=== PATIENT | female | born 1985 | race African-American/Black ===

== ENCOUNTER 2024-06-22 08:56 | Emergency (ER) | payer OTHER ==
--- OUTSIDE RECORDS SUMMARY | 2024-06-22 09:00 | XMS REPORT | Continuity of Care Document ---
Author Name Unknown Address [address] [facility] [place] [address] [facility] [place] Address [address] [facility] [place] [address] Care Team Providers Care Special Education Para Professional Name Role Phone PCP, PATIENT DOES NOT HAVE A Primary Care Physic ailyn Unavailable JOCE KEITA Attending Clinician Unavailable ANDREW HOOVER Attending Clinician Unavailable JUVE THORNTON Attending Clinician Unavailab BRAXTON Dee I Attending Clinician Unavailab buddy [email or web address]_S Attending Clinician UnavailSCOTTIE Martins Attending Clinician UnavailScottie Elena MD Attending Clinician See Janeth HOLLOWAY Attending Clinician + Trinidad Teresa MD Attending Clinician TRINIDAD TERESA Attending Clinician UnavailJANETH Chisholm Attending Clinician Unavail able KRYS MARTINEZ Attending Clinician Unavailable Krys Woody Attending Clinician [phone] Doctor Unassigned, [place] Attending Clinician U kaila Duong MD, Judi Oliveros Attending Clinician LEONARDO DEAN Attending Clinician Unavailable Huseyin Deleon Attending Clinician FABIAN, DR CARTER Attending Clinician Unavailable [email or web address]_S Admitting Clinician Unavaila SCOTTIE Varma Admitting Clinician UnavailKRYS Leigh Admitting Clinician Unavailable DR EMMA PERALTA Admitting Clinician Unavailable Payers Payer Name Policy Type Policy Number Effective Date Expirati on Date Source [facility] [id number] 2017 00:00:00 [facility] GOLD COPAY FOCUS 9 [id number] 2024 00:00:00 [facility] DEB[facility]AH MP 1 [id number] 2024 00:00:00 Problems Condition Name Condition Details Condition Category Status Onset Date Resolution Date Last Treatment Date Treating Clinician Comments Source Well woman exam Well woman exam Disease Active 2021-04 00:00: 00 [facility] Obesity (BMI 30-39.9) Obesity (BMI 30-39.9) Disease Active 2021-04 00:00: 00 [facility] Breast abscess Breast abscess Disease Active 2021-04 00:00: 00 [facility] Dehydratio n Dehydratio n Disease Active 08-24 00:00: 00 [facility] Cellulitis Cellulitis Disease Active 2014-04 00:00: 00 [facility] Morbid obesity Morbid obesity Disease Active 01-14 00:00: 00 [facility] Asthma Asthma Disease Active 01-14 00:00: 00 [facility] Allergies, Adverse Reactions, Alerts Allergy Name Allergy Type Status Severity Reaction(s) Onset Date Inactive Date Treating Clinician Comments Source PENICILL INS Drug Class Active Unknown-Cmnt 01-13 00:00: 00 [facility] Penicill ins Propensi ty to adverse reaction s Active Unknown - See comments 01-13 00:00: 00 anaphylac tic [facility] Penicill ins Propensi ty to adverse reaction s Active Unknown - See comments 01-13 00:00: 00 anaphylac tic [facility] Social History Social Habit Start Date Stop Date Quantity Comments Source ASSERTION 2018-07-27 00:00:00 [facility] History of tobacco use Cigarette Smoker [facility] Exposure to SARS-CoV-2 (event) 2022-08-16 00:00:00 2022-08-26 15:28:00 Not sure [facility] Alcohol intake 2022-08-26 00:00:00 2022-08-26 00:00:00 Current non-drinker of alcohol (finding) [facility] Cigarettes smoked current (pack per day) - Reported 2022-02-04 00:00:00 2022-02-04 00:00:00 [facility] Cigarette pack-years 2022-02-04 00:00:00 2022-02-04 00:00:00 [facility] Tobacco use and exposure 2022-02-04 00:00:00 2022-02-04 00:00:00 Smokeless tobacco non-user [facility] Sex Assigned At 1985 00:00:00 1985 00:00:00 [facility] Smoking Status Start Date Stop Date Source Smokes tobacco daily 2022-02-04 00:00:00 [facility] Medications Ordered Medication Name Filled Medication Name Start Date Stop Date Current Medication? Ordering Clinician Indication Dosage Frequency Signature (SIG) Comments Components Source clindamycin in 5 % dextrose (CLEOCIN) 900 mg/50 mL IV piggyback RTU 900 mg 08-26 22:45: 00 08-26 22:24 :00 No 900mg 900 mg, IV Piggyback, ONCE, 1 dose, On Wed08/26/22 at 1745, Administer over 30 Minutes, 50 mL
Reas on for Anti-Infec tive: Empiric Therapy for Suspected Infection< br>Empiric Therapy Site: Skin / Soft tissue
Duration of therapy: 72 hours
R estricted use approved by: After Hours (for ADC, CLC, LCC ONLY) [facility] sulfamethox azole-trime thoprim (BACTRIM DS) 800-160 mg per tablet 2 tablet 08-26 22:00: 00 08-26 22:02 :00 No 2{tbl} 2 tablet, Oral, ONCE, 1 dose, On Wed08/26/22 at 1700, CARINA
Re ason for Anti-Infec tive: Empiric Therapy for Suspected Infection< br>Empiric Therapy Site: Skin / Soft tissue
Duration of therapy: 5 days [facility] morpHINE (4 mg/mL) injection 4 mg 08-26 22:00: 00 08-26 22:02 :00 No 4mg 4 mg, Slow IV Push, ONCE, 1 dose, On Wed08/26/22 at 1700, STAT [facility] iopamidol (ISOVUE 370-500 mL) injection 100 mL 08-26 21:45: 00 08-26 21:45 :00 No [id number] 100mL 100 mL, Intravenou s, ONCE, 1 dose, On Wed08/26/22 at 1645, Routine [facility] butalbital- acetaminoph en-caff (ESGIC) 50-325-40 mg tablet 1 tablet 08-26 20:45: 00 08-26 20:25 :00 No 1{tbl} 1 tablet, Oral, ONCE NOW, 1 dose, On Wed08/26/22 at 1545, Routine [facility] ketorolac (TORADOL) injection 30 mg 08-26 20:45: 00 08-26 20:25 :00 No 30mg 30 mg, Slow IV Push, ONCE, 1 dose, On Wed08/26/22 at 1545, Routine [facility] ondansetron (ZOFRAN (PF)) injection 4 mg 08-26 20:00: 00 08-26 20:25 :00 No 4mg 4 mg, Slow IV Push, ONCE, 1 dose, On Wed08/26/22 at 1500, CARINA [facility] NaCl 0.9% (NS) bolus infusion 1,000 mL 08-26 20:00: 00 08-26 21:44 :00 No 1000mL at 999 mL/hr, 1,000 mL, IV Infusion, ONCE, 1 dose, On Wed08/26/22 at 1500, STAT [facility] acetaminoph en-codeine (TYLENOL-CO DEINE #3) 300-30 mg tablet 08-26 00:00: 00 Yes [id number] 1{tbl} Take 1 tablet by mouth every 6 (six) hours as needed for Pain (scale 4-6) for up to 10 doses. Indication s: acute pain [facility] clindamycin 300 mg capsule 08-26 00:00: 00 09-06 04:59 :00 No [id number] 300mg Take 1 capsule by mouth in the morning and 1 capsule at noon and 1 capsule in the evening. Do all this for 10 days. [facility] sulfamethox azole-trime thoprim 800-160 mg per tablet 08-26 00:00: 00 09-06 04:59 :00 No [id number] 2{tbl} Take 2 tablets by mouth every 12 (twelve) hours for 10 days. [facility] ibuprofen 800 mg tablet 08-26 00:00: 00 09-01 04:59 :00 No [id number] 800mg Take 1 tablet by mouth every 8 (eight) hours as needed for Pain (scale 4-6) for up to 5 days. [facility] acetaminoph en 325 mg Cap 2021-04 16:39: 16 03-30 00:00 :00 No Take by mouth. [facility] clindamycin 1 % gel 2021-04 00:00: 00 Yes [id number] Apply to area(s) 2 (two) times daily. Use twice a day under right breast and around nipple [facility] sulfamethox azole-trime thoprim (BACTRIM DS) 800-160 mg per tablet 2021-04 00:00: 00 04-07 05:59 :00 No [id number] 1{tbl} Take 1 tablet by mouth in the morning and 1 tablet in the evening. Do all this for 7 days. [facility] sulfamethox azole-trime thoprim (BACTRIM) 400-80 mg per tablet 2021-04 00:00: 00 04-07 05:59 :00 No [id number] 1{tbl} Take 1 tablet by mouth in the morning and 1 tablet in the evening. Do all this for 7 days. To start first week of every other month, alternatin g with Doxycyline (eg. Take a week course of Bactrim now [03/30/22] then take Doxycyline on first week of April, then Bactrim the first week of May, then Doxycyline the first week of June, and then Bactrim the first week of July, and so on and so forth. [facility] doxycycline 100 mg EC tablet 2021-04 00:00: 00 04-07 05:59 :00 No [id number] 100mg Take 1 tablet by mouth in the morning and 1 tablet in the evening. Do all this for 7 days. To start first week of every other month, alternatin g with Doxycyline (eg. Take a week course of Bactrim now [03/30/22] then take Doxycyline on first week of April, then Bactrim the first week of May, then Doxycyline the first week of June, and then Bactrim the first week of July, and so on and so forth. [facility] acetaminoph en 325 mg Cap 2021-04 019 09:52: 48 Yes Take by mouth. [facility] ipratropium -albuterol (DUONEB) 0.5 mg-3 mg(2.5 mg base)/3 mL nebulizer solution 3 mL 06-14 22:30: 00 06-14 21:38 :00 No 3mL 3 mL, Inhalation , ONCE, 1 dose, 06/14/19 at 1630, Routine [facility] albuterol 2.5 mg /3 mL (0.083 %) nebulizer solution 06-14 00:00: 00 03-30 00:00 :00 No [id number] 2.5mg Inhale 3 mL every 4 (four) hours as needed for Wheezing or Shortness of Breath. [facility] ibuprofen 600 mg tablet 06-14 00:00: 00 03-30 00:00 :00 No [id number] 600mg Take 1 tablet by mouth every 6 (six) hours as needed for Pain (scale 4-6). [facility] ondansetron (ZOFRAN ODT) 4 mg disintegrat ing tablet 06-14 00:00: 00 03-30 00:00 :00 No [id number] 4mg Take 1 tablet by mouth every 8 (eight) hours as needed for Nausea and Vomiting (N/V). [facility] benzonatate 200 mg capsule 06-14 00:00: 00 03-30 00:00 :00 No [id number] 200mg Take 1 capsule by mouth 3 (three) times daily as needed for Cough for up to 20 doses. [facility] Quetiapine 150 mg tablet 09-09 00:00: 03-30 00:00 :00 No TK 1 T PO QHS [facility] acetaminoph en (TYLENOL) 325 mg Cap 09-05 18:50: 54 Yes Take by mouth. [facility] acetaminoph en (TYLENOL) 325 mg Cap 09-05 13:50: 54 Yes Take by mouth. [facility] albuterol 90 mcg/actuati on inhaler 08-10 00:00: 00 03-30 00:00 :00 No [id number] 2{puff} Inhale 2 Puffs every 6 (six) hours as needed for Wheezing or Shortness of Breath. [facility] Vital Signs Vital Name Observation Time Observation Value Comments S piotr Systolic blood pressure 2022-08-26 21:00:00 109 mm[Hg] [facility] Diastolic blood pressure 2022-08-26 21:00:00 74 mm[Hg] [facility] Heart rate 2022-08-26 21:00:00 59 /min [facility] Respiratory rate 2022-08-26 21:00:00 18 /min [facility] Oxygen saturation in Arterial blood by Pulse oximetry 2022-08-26 21:00:00 100 /min [facility] Body temperature 2022-08-26 19:26:00 37.22 Irta [facility] Body weight 2022-08-26 19:26:00 122.471 kg [facility] BMI 2022-08-26 19:26:00 47.83 kg/m2 [facility] Systolic blood pressure 2022-04-30 23:00:00 115 mm[Hg] [facility] Diastolic blood pressure 2022-04-30 23:00:00 70 mm[Hg] [facility] Heart rate 2022-04-30 23:00:00 71 /min [facility] Respiratory rate 2022-04-30 23:00:00 16 /min [facility] Oxygen saturation in Arterial blood by Pulse oximetry 2022-04-30 23:00:00 98 /min [facility] Body temperature 2022-04-30 18:15:00 37.5 Rita [facility] Body height 2022-04-30 18:13:00 160 cm [facility] Body weight 2022-04-30 18:13:00 163.295 kg [facility] BMI 2022-04-30 18:13:00 63.77 kg/m2 [facility] Systolic blood pressure 2022-03-30 22:37:00 108 mm[Hg] [facility] Diastolic blood pressure 2022-03-30 22:37:00 72 mm[Hg] [facility] Heart rate 2022-03-30 22:37:00 82 /min [facility] 2022-03-30 22:37:00 18 /min [facility] Body height 2022-03-30 22:37:00 160 cm [facility] Body weight 2022-03-30 22:37:[address] [facility] BMI 2022-03-30 22:37:00 51.23 kg/m2 [facility] Oxygen saturation in Arterial blood by Pulse oximetry 2022-03-30 22:37:00 100 /min [facility] Systolic blood pressure 2022-02-04 14:45:00 112 mm[Hg] [facility] Diastolic blood pressure 2022-02-04 14:45:00 67 mm[Hg] [facility] Heart rate 2022-02-04 14:45:00 64 /min [facility] Body temperature 2022-02-04 14:45:00 36.67 Rita [facility] Respiratory rate 2022-02-04 14:45:00 20 /min [facility] Body height 2022-02-04 14:45:00 160 cm [facility] Body weight 2022-02-04 14:45:00 132.252 kg [facility] BMI 2022-02-04 14:45:00 51.65 kg/m2 [facility] Respiratory rate 2019-06-14 21:50:00 20 /min [facility] Oxygen saturation in Arterial blood by Pulse oximetry 2019-06-14 21:50:00 97 /min [facility] Systolic blood pressure 2019-06-14 20:07:00 119 mm[Hg] [facility] Diastolic blood pressure 2019-06-14 20:07:00 71 mm[Hg] [facility] Heart rate 2019-06-14 20:07:00 68 /min [facility] Body temperature 2019-06-14 20:07:00 36.83 Rita [facility] Body weight 2019-06-14 20:07:00 145.151 kg [facility] BMI 2019-06-14 20:07:00 56.69 kg/m2 [facility] Procedures Procedure Date / Time Performed Performing Clinician Source CT SOFT TISSUE NECK W CONTRAST 2022-08-26 20:55:51 Scottie Garcia [facility] CT HEAD WO CONTRAST 2022-08-26 20:54:17 Katarina Garcia [facility] TEST, SERUM 2022-08-26 20:24:00 Xena Garcia [facility] COMP. METABOLIC PANEL ([id number]) 2022-08-26 20:24:00 Scottie Garcia [facility] CBC WITH DIFF 2022-08-26 20:24:00 [facility] S[facility]EN FOR GROUP A 2022-08-26 20:24:00 Scottie Garcia [facility] RAPID INFLUENZA A/B 2022-08-26 20:24:00 Katarina Garcia [facility] COVID-19 (ID NOW RAPID TESTING) 2022-08-26 20:24:00 Scottie Garcia [facility] CONSENT/REFUSAL FOR DIAGNOSIS AND TREATMENT 2022-08-26 19:19:11 Doctor Unassigned, [place] [facility] XR FOOT 3+ VW RIGHT 2022-04-30 19:05:53 Krys Martinez [facility] NOTICE OF PRIVACY PRACTICES 2022-04-30 17:40:23 Doctor Unassigned, [place] [facility] CONSENT/REFUSAL FOR DIAGNOSIS AND TREATMENT 2022-04-30 17:39:56 Doctor Unassigned, [place] [facility] DISCLOSURE AND CONSENT, MEDICAL AND SURGICAL PROCEDURES 2022-03-31 06:01:00 Doctor Unassigned, [place] [facility] BI BIOPSY LYMPHNODE AXILLARY RIGHT 2022-02-24 20:45:00 Janeth Cui [facility] BI BIOPSY LYMPHNODE AXILLARY LEFT 2022-02-24 19:59:00 Janeth Cui [facility] BI US GUIDED CORE BREAST BIOPSY RIGHT 2022-02-24 19:45:00 Janeth Cui [facility] BI ULTRASOUND BREAST COMPLETE BILATERAL 2022-02-16 20:20:28 Janeth Cui [facility] BI DIAGNOSTIC TOMOSYNTHESIS BILATERAL 2022-02-16 19:31:39 Janeth Cui [facility] "RWSP CULLEN ONLY" FLU VACC(), 6+ MONTHS, IM, QUAD (FLUZONE/FLULAVAL/FLUARI X) 2022-02-04 18:56:51 Janeth Cui [facility] PROLACTIN 2022-02-04 15:42:00 Janeth Cui [facility] THYROID STIMULATING HORMONE 2022-02-04 15:42:00 Janeth Cui [facility] PAP SMEAR-LIQUID BASED-CP 2022-02-04 15:42:00 Janeth Cui [facility] ASSIGNMENT OF BENEFITS 2022-02-04 14:08:52 Docto r Unassigned, [place] [facility] NOTICE OF PRIVACY PRACTICES 2019-06-14 20:01:04 Doctor Unassigned, [place] [facility] CONSENT/REFUSAL FOR DIAGNOSIS AND TREATMENT 2019-06-14 19:58:12 Doctor Unassigned, [place] [facility] Encounters Start Date/Time End Date/Time Encounter Type Admission Type Attending [facility] Care Facility Care Department Encounter ID Source 2021-02-13 11:14:44 Emergency [facility] [id number] [facility] 2024-06-22 00:00:00 2024-06-22 00:00:00 Outpatient JOCE KEITA [id number] [facility] 2024 14:00:00 2024 14:00:00 Outpatient ANDREW HOOVER [id number] [facility] 2024-05-15 14:00:00 2024-05-15 14:00:00 Outpatient JUVE THORNTON [id number] [facility] 2024-05-12 11:30:00 2024-05-12 11:30:00 Outpatient BRAXTON ABBASI [id number] [facility] 2024-05-11 18:15:00 2024-05-11 18:15:00 Outpatient JESSA GLEASON [id number] [facility] 2023-02-16 00:00:00 2023-02-16 00:00:00 Outpatient GC_GCBZW_Ka diyala_S PRIV PRIV [id number] [facility] 2023-02-15 00:00:00 2023-02-15 00:00:00 Outpatient GC_GCBZW_Ka diyala_S PRIV PRIV [id number] [facility] 2022-08-26 14:28:00 2022-08-26 17:27:00 Emergency X SCOTTIE GARCIA [facility] ERT [id number] [facility] 2022-08-26 14:28:00 2022-08-26 17:27:00 Emergency Scottie Garcia A [facility] [id number] 350.1.13.10 4.2.7.2.686 [id number] [facility] 2022-08-21 00:00:00 2022-08-21 00:00:00 Telephone Janeth Cui [facility] THERAPY TECH [facility] [id number] 350.1.13.10 4.2.7.2.686 [id number] [facility] 2022-07-07 00:00:00 2022-07-07 00:00:00 Telephone Trinidad Teresa S [facility] [id number] 350.1.13.10 4.2.7.2.686 [id number] [facility] 2022-07-06 16:45:00 2022-07-06 16:45:00 Outpatient TRINIDAD PAPPAS [facility] [id number] [facility] 2022-06-19 00:00:00 2022-06-19 00:00:00 Outpatient JANETH BAUM [facility] [id number] [facility] 2022-05-27 00:00:00 2022-05-27 00:00:00 Telephone Janeth Cui [facility] THERAPY TECH [facility] [id number] 350.1.13.10 4.2.7.2.686 [id number] [facility] 2022-05-19 00:00:00 2022-05-19 00:00:00 Outpatient JANETH BAUM [facility] [id number] [facility] 2022-04-30 12:16:00 2022-04-30 17:26:00 Emergency X KRYS MARTINEZ [facility] ERT [id number] [facility] 2022-04-30 12:16:00 2022-04-30 17:26:00 Emergency Krys Martinez [facility] [id number] 350.1.13.10 4.2.7.2.686 [id number] [facility] 2022-04-06 16:45:00 2022-04-06 17:00:00 Telemedici ne Visit Candidaigor [facility] [id number] 350.1.13.10 4.2.7.2.686 [id number] [facility] 2022-04-06 16:45:00 2022-04-06 16:45:00 [facility] [id number] [facility] 2022-03-31 00:00:00 2022-03-31 00:00:00 Orders Only Doctor Unassigned, [place] [facility] [id number] 350.1.13.10 4.2.7.2.686 [id number] [facility] 2022-03-30 16:30:00 2022-03-30 17:00:00 Office Visit Trinidad Teresa [facility] 1.84.114 350.1.13.10 4.2.7.2.686 [id number] [facility] 2022-03-30 16:30:00 2022-03-30 16:30:00 [facility] [id number] [facility] 2022-03-09 00:00:00 2022-03-09 00:00:00 Telephone Judi Duong [facility] [id number] 350.1.13.10 4.2.7.2.686 [id number] [facility] 2022-03-03 00:00:00 2022-03-03 00:00:00 Telephone Janeth Cui [facility] THERAPY TECH [facility] [id number] 350.1.13.10 4.2.7.2.686 [id number] [facility] 2022-02-27 00:00:00 2022-02-27 00:00:00 Telephone Janeth Cui [facility] THERAPY TECH [facility] [id number] 350.1.13.10 4.2.7.2.686 [id number] [facility] 2022-02-24 12:17:33 2022-02-24 23:59:00 Hospital Encounter Janeth Cui [facility] [id number] 350.1.13.10 4.2.7.2.686 [id number] [facility] 2022-02-24 12:17:09 2022-02-24 23:59:00 Hospital Encounter Janeth Cui [facility] [id number] 350.1.13.10 4.2.7.2.686 [id number] [facility] 2022-02-24 12:16:42 2022-02-24 12:16:42 Outpatient R JANETH CUI [facility] [id number] [facility] 2022-02-24 12:16:42 2022-02-24 12:16:42 Hospital Encounter Janeth Cui [facility] [id number] 350.1.13.10 4.2.7.2.686 [id number] [facility] 2022-02-24 00:00:00 2022-02-24 00:00:00 Letter (Out) Janeth Cui [facility] THERAPY TECH [facility] & CHILD [facility] [id number] 350.1.13.10 4.2.7.2.686 [id number] [facility] 2022-02-17 00:00:00 2022-02-17 00:00:00 Telephone See Janeth Torres [facility] THERAPY TECH [facility] [id number] 350.1.13.10 4.2.7.2.686 [id number] [facility] 2022-02-16 13:44:05 2022-02-16 23:59:00 Hospital Encounter Janeth Cui [facility] 1.840.114 350.1.13.10 4.2.7.2.686 [id number] [facility] 2022-02-16 13:42:59 2022-02-16 13:43:00 Outpatient R JANETH CUI [facility] [id number] [facility] 2022-02-16 13:42:59 2022-02-16 13:43:00 Hospital Encounter Janeth Cui [facility] 1.840.114 350.1.13.10 4.2.7.2.686 [id number] [facility] 2022-02-06 00:00:00 2022-02-06 00:00:00 Telephone Janeth Cui [facility] THERAPY TECH [facility] CHILD [facility] 1.2.840.114 350.1.13.10 4.2.7.2.686 [id number] [facility] 2022-02-05 00:00:00 2022-02-05 00:00:00 Telephone Janeth Cui [facility] THERAPY TECH [facility] & CHILD [facility] [id number] 350.1.13.10 [id number] [id number] [facility] 2022-02-04 13:30:00 2022-02-04 13:30:00 Outpatient R JANETH [facility] [id number] [facility] 2022-02-04 08:30:00 2022-02-04 10:43:15 Office Visit Janeth Cui [facility] THERAPY TECH [facility] 1..840.114 350.1.13.10 4.2.7.2.686 [id number] [facility] 2022-02-04 08:30:00 2022-02-04 10:43:15 Outpatient R JANETH [facility] [id number] [facility] 2022-02-04 08:30:00 2022-02-04 08:30:00 Outpatient R JANETH [facility] [id number] [facility] 2022-02-04 00:00:00 2022-02-04 00:00:00 Orders Only Doctor Unassigned, [place] [facility] 1..840.114 350.1.13.10 4.2.7.2.686 [id number] [facility] 2022-01-21 09:00:00 2022-01-21 09:00:00 Outpatient R LEONARDO [facility]AN [facility] [id number] [facility] 2020-10-23 09:00:00 2020-10-23 09:00:00 Outpatient R JANETH [facility] [id number] [facility] 2020-06-12 00:00:00 2020-06-12 00:00:00 Letter (Out) Doctor Unassigned, [place] [facility] 1.2.840.114 350.1.13.10 4.2.7.2.686 [id number] [facility] 2019-06-14 14:09:32 2019-06-14 16:30:00 Emergency [facility] 1.2.840.114 350.1.13.10 4.2.7.2.686 [id number] [facility] 2019-06-14 00:00:00 2019-06-14 00:00:00 Orders Only Doctor Unassigned, [place] [facility] 1.2.840.114 350.1.13.10 4.2.7.2.686 [id number] [facility] 2017-12-16 10:09:00 2017-12-16 10:54:00 Outpatient [facility] [id number] [facility] Results Test Description Test Time Test Comments Results Result Co mments Source [facility] METABOLIC PANEL (18825)2022-08-26 21:03:19* Test Item Value Reference Range Interpretation Comme nts NA (test code = 8984354548) 141 mmol/L 135-145 K (test code = 8014843365) 4.1 mmol/L 3.5-5.0 CL (test code = 4415290606) 104 mmol/L 98-108 CO2 TOTAL (test code = 0704988190) 30 mmol/L 23-31 AGAP (test code = 6879054963) 7 2-16 BUN (test code = 8002925123) 10 mg/dL 7-23 GLUCOSE (test code = 0501680963) 79 mg/dL 70-110 CREATININE (test code = 3042846997) 0.82 mg/dL 0.50-1.04 TOTAL BILI (test code = 6904064757) 0.3 mg/dL 0.1-1.1 CALCIUM (test code = 2459723216) 8.8 mg/dL 8.6-10.6 T PROTEIN (test code = 5470184146) 6.6 g/dL 6.3-8.2 ALBUMIN (test code = 9311949283) 3.5 g/dL 3.5-5.0 ALK PHOS (test code = 0957732554) 51 U/L 34-122 ALTv (test code = 1742-6) 11 U/L 5-35 AST(SGOT) (test code = 5194729926) 16 U/L 13-40 eGFR (test code = 2472361954) 77.6 mL/min/1.73m2 DARRIUS (test code = DARRIUS) Association of Glomerular Filtration Rate (GFR) and Staging of Kidney Disease* + + +- +| GFR (mL/min/1.73 m2) ?| With Kidney Damage ?| ?Without Kidney Damage+ ------+ ----+ ------+| ?>90 ?| ?Stage one ?| ? Normal ?+ -+ + -+| ?60-89 ?| ?Stage two ?| ? Decreased GFR ? + + +- +| ?30-59 ?| ?Stage three ?| ? Stage three ? + + +- +| ?15-29 ?| ?Stage four ? | ? Stage four ?+ -+ + -+| ?<15 (or dialysis) ? ?| ?Stage five ? | ? Stage five ?+ -+ + -+ *Each stage assumes the associated GFR level has been in effect for at least three months. ?Stages 1 to 5, with or without kidney disease, indicate chronic kidney disease. Notes: Determination of stages one and two (with eGFR >59mL/min/1.73 m2) requires estimation of kidney damage for at least three months as defined by structural or functional abnormalities of the kidney, manifested by either:Pathological abnormalities or Markers of kidney damage (including abnormalities in the composition of the blood or urine or abnormalities in imaging tests). [facility] WITH [id number] 20:51:56* Test Item Value Reference Range Interpretation Comme nts WBC (test code = 6690-2) 7.75 See_Comment [Automated [employer]] The system which generated this result transmitted reference range: 4.30 - 11.10 10*3/?L. The reference range was not used to interpret this result as normal/abnormal. RBC (test code = 789-8) 3.90 See_Comment L [Automated messa ge] The system which generated this result transmitted reference range: 3.93 - 5.25 10*6/?L. The reference range was not used to interpret this result as normal/abnormal. HGB (test code = 718-7) 10.5 g/dL 11.6-15.0 L HCT (test code = 4544-3) 33.4 % 35.7-45.2 L MCV (test code = 787-2) 85.6 fL 80.6-95.5 MCH (test code = 785-6) 26.9 pg 25.9-32.8 MCHC (test code = 786-4) 31.4 g/dL 31.6-35.1 L RDW-SD (test code = 34928-6) 45.8 fL 39.0-49.9 RDW-CV (test code = 788-0) 14.6 % 12.0-15.5 PLT (test code = 777-3) 287 See_Comment [Automated messa ge] The system which generated this result transmitted reference range: 166 - 358 10*3/?L. The reference range was not used to interpret this result as normal/abnormal. MPV (test code = 67691-6) 9.5 fL 9.5-12.9 NRBC/100 WBC (test code = 2459440286) 0.0 See_Comment [Automated [employer]] The system which generated this result transmitted reference range: 0.0 - 10.0 /100 WBCs. The reference range was not used to interpret this result as normal/abnormal. NRBC x10^3 (test code = 8955657677) See_Comment [Automated messa ge] The system which generated this result transmitted reference range: 10*3/?L. The reference range was not used to interpret this result as normal/abnormal. GRAN MAT (NEUT) % (test code = 770-8) 45.0 % IMM GRAN % (test code = 3597866423) 0.30 % LYMPH % (test code = 736-9) 46.5 % MONO % (test code = 5905-5) 5.5 % EOS % (test code = 713-8) 2.2 % BASO % (test code = 706-2) 0.5 % GRAN MAT x10^3(ANC) (test code = 1415327268) 3.49 10*3/uL 1.88-7.09 IMM GRAN x10^3 (test code = 0913795129) 0.00-0.06 LYMPH x10^3 (test code = 731-0) 3.60 10*3/uL 1.32-3.29 H MONO x10^3 (test code = 742-7) 0.43 10*3/uL 0.33-0.92 EOS x10^3 (test code = 711-2) 0.17 10*3/uL 0.03-0.39 BASO x10^3 (test code = 704-7) 0.04 10*3/uL 0.01-0.07 Lab Interpretation (test code = 91426-3) Abnormal [facility]22[facility] 05:57:36* Test Item Value Reference Range Interpretation Comme nts PROLACTIN (test code = 3489762552) 7.7 ng/mL 3.3-26.7 Lab Interpretation (test cod e = 49855-9) Normal [facility] STIMULATING [id number] 03:57:43 * Test Item Value Reference Range Interpretation Comme nts TSH (test code = 8869522960) See_Comment Biotin has been reported to cause a negative bias, interpret results relative to patient's use of biotin. [Automated message] The system which generated this result transmitted reference range: 0.45 - 4.70 mIU/L. The reference range was not used to interpret this result as normal/abnormal. Lab Interpretation (test code = 93856-2) Normal [facility]
--- NOTE | 2024-06-22 09:22 | RAD REPORT ---
EXAMINATION: CT MAXILLOFACIAL WITHOUT CONTRAST CLINICAL INDICATION: FACIAL PAIN TECHNIQUE: Axial images were obtained through the facial bones and orbits without intravenous contras t. Sagittal and coronal reconstructions were created from the data. One or more of the following dose reduction techniques were used: Automated exposure control, adjustment of the mA and/or kV accor ding to patient size, and/or iterative reconstruction. Unless otherwise specified, incidental findings do not require dedicated imaging follow-up. COMPARISON: No prior exam. FINDINGS: No fracture is visualized No TMJ dislocation. The globes are normal in density and size. Lucencies are present within several mandibular and maxillary teeth. No soft tissue abscess visualize d. IMPRESSION: Lucencies within several mandibular and maxillary teeth consistent with dental caries
[2024-06-22] MEDS ORDERED: FENTANYL CITR 100 MCG/2 ML ONE (09:41)
[2024-06-22] MEDS ORDERED: ONDANSETRON 4 MG/2 ML VIAL ONE (09:41)
[2024-06-22] MEDS ORDERED: KETOROLAC 30 MG/ML INJ ONE (09:42)
[2024-06-22 09:46] LABS: Absolute Eosinophils 0.1 K/uL (0-0.5); Absolute Lymphocytes (CBC) 4.6 K/uL (0.7-4.9); Absolute Monocytes 0.6 K/uL (0.1-1.3); Absolute Neutrophil 3.5 K/uL (1.8-8.0); Basophils % 0.4 % (0-1.3); Hematocrit 32.7 % (36.0-45.0); Hemoglobin 10.7 g/dL (12.0-15.0); Lymphocytes % 51.8 % (15.3-44.8); MCH 26.2 pg (27.0-35.0); MCHC 32.6 g/dL (32.0-36.0); MCV 80.4 fL (80-100); MPV 7.4 fL (7.6-11.3); Monocytes % 7.2 % (3.3-12.3); Neutrophils % 39.6 % (41.7-73.7); Nucleated Red Blood Cells % 0.2 % (0-0); Platelets 341 thou/uL (152-406); RBC Red Blood Cell Count 4.07 M/uL (3.86-4.86); Red Cell Distribution Width 17.8 % (12.1-15.2)
[2024-06-22 10:15] LABS: Albumin 3.4 g/dL (3.4-5.0); Albumin/Globulin Ratio 0.9 (1.1-1.8); Anion Gap 9.5 mEq/L (5.0-15.0); Bilirubin Total 0.6 mg/dL (0.2-1.0); Potassium 3.5 mEq/L (3.5-5.1); Protein, Total 7.4 g/dL (6.4-8.2)
--- NOTE | 2024-06-22 11:00 | ER ---
Nurse's Notes [facility] Name: Elina Guardado Age: 39 yrs Sex: Female : 1985 Arrival Date: 06/22/2024 Time: 08:56 Bed DX3 Private MD: Diagnosis: Dental caries, unspecified;Dental root caries Presentation: 06/22 09:01 Chief complaint: EMS states: found in parking lot , appeared anxious , 4 days ago one iw of her teeth fell out and looks infected, pain X 3 days , coughing constantly. Coronavirus screen: At this time, the client does not indicate any symptoms associated with coronavirus-19. Ebola Screen: No symptoms or risks identified at this time. Initial Sepsis Screen: Does the patient meet any 2 criteria? No. Patient's initial sepsis screen is negative. Does the patient have a suspected source of infection? No. Patient's initial sepsis screen is negative. 09:01 Method Of Arrival: EMS: [facility] iw 09:01 Acuity: DENITA 3 iw 09:01 Onset of symptoms was June 22, 2024. iw 09:32 Risk Assessment: Do you want to hurt yourself or someone else?. iw Triage Assessment: 09:01 General: Appears in no apparent distress. Behavior is anxious. iw Historical: - Allergies: 09:02 PENICILLINS; iw - Immunization history:: Adult Immunizations. Screenin:05 [facility] ED Fall Risk Assessment (Adult) History of falling in the last 3 months, iw including since admission No falls in past 3 months (0 pts) Confusion or Disorientation No (0 pts) Intoxicated or Sedated No (0 pts) Impaired Gait No (0 pts) Mobility Assist Device Used No (0 pt) Altered Elimination No (0 pt) Score/Fall Risk Level 0 - 2 = Low Risk Oriented to surroundings, Maintained a safe environment. Abuse screen: Denies threats or abuse. Denies injuries from another. Nutritional screening: No deficits noted. Tuberculosis screening: No symptoms or risk factors identified. Assessment: 09:01 General: Appears uncomfortable, Behavior is agitated, anxious, restless. Pain: iw Complains of pain in lower left first molar and lower left second molar and lower left third molar and mouth Pain currently is 10 out of 10 on a pain scale. Neuro: Level of Consciousness is awake, alert, obeys commands, Oriented to person, place, time, situation, Moves all extremities. Cardiovascular: Patient's skin is warm and dry. Respiratory: Respiratory effort is even, Respiratory pattern is hyperventilation. Derm: Skin is healthy with good turgor. 10:20 Reassessment: Patient appears in no apparent distress at this time. Patient and/or iw family updated on plan of care and expected duration. Pain level reassessed. Patient is alert, oriented x 3, equal unlabored respirations, skin warm/dry/pink. Patient states feeling better. Patient states symptoms have improved. Vital Signs: 09:32 BP 151 / 101; Pulse 88; Resp 22; Temp 97.6; Pulse Ox 100% ; Pain 10/10; iw 10:50 BP 145 / 81; Pulse 97; Resp 16; Pulse Ox 100% on R/A; iw 09:32 Pain Scale: Adult iw ED Course: 08:57 Patient arrived in ED. mr 08:57 Savage Gallego MD is Attending Physician. deni 09:01 Patient has correct armband on for positive identification. Provided Education on: . iw 09:02 Triage completed. iw 09:13 CT Facial Bones W/O Con In Process Unspecified. EDMS 09:35 Arm band placed on. iw 09:39 Initial lab(s) drawn, by me, sent to lab. Maintain EMS IV. Dressing intact. Good blood zm return noted. Site clean \T\ dry. Gauge \T\ site: 20 G LAC. Flushed with 10 mL NS. 09:40 Comprehensive Metabolic Panel Sent. zm 09:40 CBC with Diff Sent. zm 10:43 Shaneka Moffett RN is Primary Nurse. iw 10:58 Good Tabares DDS is Referral Physician. deni 11:06 No provider procedures requiring assistance completed. IV discontinued, intact, iw bleeding controlled, No redness/swelling at site. Pressure dressing applied. Administered Medications: 09:51 Drug: Ketorolac IVP 30 mg IVP once Route: IVP; Site: left antecubital; iw 10:50 Follow up: Response: No adverse reaction; Pain is decreased iw 09:51 Drug: fentaNYL (PF) IVP 50 mcg IVP once Route: IVP; Site: left antecubital; iw 10:50 Follow up: Response: No adverse reaction; Pain is decreased iw 09:51 Drug: Ondansetron IVP 4 mg IVP once; over 2 minutes Route: IVP; Site: left antecubital; iw 10:50 Follow up: Response: No adverse reaction iw 11:04 Not Given (Patient Refused): mg IVPB once over 30 mins; (mix in 50 mL) iw 19:30 Not Given (Patient Refused): ns 0.9% 1000 ml IV at 1000 ml once; to be given as a bolus iw over 60 minutes Medication: 09:01 VIS not applicable for this client. iw Outcome: 10:59 Discharge ordered by . [facility] 11:07 Discharged to home ambulatory, iw 11:07 Condition: good 11:07 Discharge instructions given to patient, Instructed on discharge instructions, follow up and referral plans. medication usage, Demonstrated understanding of instructions, follow-up care, medications, Prescriptions given X 2, 11:08 Patient left the ED. iw Signatures: Dispatcher [employer] EDMS Savgae Gallego MD MD cha Rivera, Mary, Reg Reg mr Shaneka Moffett, RN RN Evi Meek Corrections: (The following items were deleted from the chart) 09:02 09:02 Allergies: Tetanus Vaccines \T\ Toxoid; iw iw 09:33 09:32 Pulse 88bpm; Resp 22bpm; Pulse Ox 100%; Temp 97.6F; Pain 10/10, Adult; iw iw 10:22 09:39 Inserted saline lock: 20 gauge in left antecubital area, using aseptic technique. Blood collected. Flushed with 10 mL NS
--- NOTE | 2024-06-22 11:00 | EDPHYS ---
Physician Documentation [facility] Name: Elina Guardado Age: 39 yrs Sex: Female : 1985 Arrival Date: 06/22/2024 Time: 08:56 Bed DX3 Private MD: ED Physician Savage Gallego HPI: 06/22 10:50 This 39 yrs old Black Female presents to ER via EMS with complaints of Mouth Infection. deni 10:50 The patient presents with broken tooth/teeth, pain, redness, swelling. The problem is deni located in the lower left third molar, lower left second molar and lower left first molar. Onset: The symptoms/episode began/occurred 2 day(s) ago. Duration: The symptoms are continuous, and are steadily getting worse. Modifying factors: The symptoms are alleviated by nothing, the symptoms are aggravated by air, chewing. Associated signs and symptoms: Pertinent positives: pain, swelling. Severity of symptoms: At their worst the symptoms were mild, in the emergency department the symptoms are unchanged. The patient has not experienced similar symptoms in the past. Historical: - Allergies: 09:02 PENICILLINS; iw - Immunization history:: Adult Immunizations. ROS: 10:50 Constitutional: Negative for fever, chills, and weight loss, Eyes: Negative for injury, deni pain, redness, and discharge, Neck: Negative for injury, pain, and swelling, Cardiovascular: Negative for chest pain, palpitations, and edema, Respiratory: Negative for shortness of breath, cough, wheezing, and pleuritic chest pain, Abdomen/GI: Negative for abdominal pain, nausea, vomiting, diarrhea, and constipation, Back: Negative for injury and pain, : Negative for injury, bleeding, discharge, and swelling, MS/Extremity: Negative for injury and deformity, Skin: Negative for injury, rash, and discoloration, Neuro: Negative for headache, weakness, numbness, tingling, and seizure, Psych: Negative for depression, anxiety, suicide ideation, homicidal ideation, and hallucinations, Allergy/Immunology: Negative for hives, rash, and allergies, Endocrine: Negative for neck swelling, polydipsia, polyuria, polyphagia, and marked weight changes, 10:50 ENT: Positive for Teeth pain Exam: 10:50 Constitutional: This is a well developed, well nourished patient who is awake, alert, deni and in no acute distress. Head/Face: Normocephalic, atraumatic. Eyes: Pupils equal round and reactive to light, extra-ocular motions intact. Lids and lashes normal. Conjunctiva and sclera are non-icteric and not injected. Cornea within normal limits. Periorbital areas with no swelling, redness, or edema. Neck: Trachea midline, no thyromegaly or masses palpated, and no cervical lymphadenopathy. Supple, full range of motion without nuchal rigidity, or vertebral point tenderness. No Meningismus. Chest/axilla: Normal chest wall appearance and motion. Nontender with no deformity. No lesions are appreciated. Cardiovascular: Regular rate and rhythm with a normal S1 and S2. No gallops, murmurs, or rubs. Normal PMI, no JVD. No pulse deficits. Respiratory: Lungs have equal breath sounds bilaterally, clear to auscultation and percussion. No rales, rhonchi or wheezes noted. No increased work of breathing, no retractions or nasal flaring. Abdomen/GI: Soft, non-tender, with normal bowel sounds. No distension or tympany. No guarding or rebound. No evidence of tenderness throughout. Back: No spinal tenderness. No costovertebral tenderness. Full range of motion. Skin: Warm, dry with normal turgor. Normal color with no rashes, no lesions, and no evidence of cellulitis. MS/ Extremity: Pulses equal, no cyanosis. Neurovascular intact. Full, normal range of motion., bilateral aka Neuro: Awake and alert, GCS 15, oriented to person, place, time, and situation. Cranial nerves II-XII grossly intact. Motor strength 5/5 in all extremities. Sensory grossly intact. Cerebellar exam normal. Normal gait. Psych: Awake, alert, with orientation to person, place and time. Behavior, mood, and affect are within normal limits. 10:50 ENT: Mouth: Oral mucosa: moist, Gums: noted to have cellulitis, reddened, swollen, no trismus, op is clear, Vital Signs: 09:32 BP 151 / 101; Pulse 88; Resp 22; Temp 97.6; Pulse Ox 100% ; Pain 10/10; iw 10:50 BP 145 / 81; Pulse 97; Resp 16; Pulse Ox 100% on R/A; iw 09:32 Pain Scale: Adult iw MDM: 08:57 Medical Screening Exam initiated deni 10:56 Differential diagnosis: dental caries, gingivitis, dental abscess, pericoronitis, deni aphthous ulcers, acute necrotizing ulcerative gingivitis, gingivostomatitis. Data reviewed: vital signs, nurses notes, lab test result(s), radiologic studies, CT scan. Consideration of Admission/Observation Escalation of care including admission/observation considered. I considered the following discharge prescriptions or medication management in the emergency department Medications were administered in the Emergency Department. See MAR. Independent interpretation of the following test(s) in the Emergency Department CT Scan: My interpretation is ct see report. Test considered but Not performed: MRI: no mri. Historians other than the Patient: pt well informed. Care significantly affected by the following chronic conditions: none. Counseling: I had a detailed discussion with the patient and/or guardian regarding the historical points, exam findings, and any diagnostic results supporting the discharge/admit diagnosis, lab results, radiology results, the need for outpatient follow up, for definitive care, a dentist, an oral maxilofacial specialist. 06/22 09:00 Order name: CBC with Diff; Complete Time: 10:44 [facility] 06/22 09:00 Order name: Comprehensive Metabolic Panel; Complete Time: 10:44 [facility] 06/22 09:00 Order name: CT Facial Bones W/O Con; Complete Time: 09:35 [facility] Administered Medications: 09:51 Drug: Ketorolac IVP 30 mg IVP once Route: IVP; Site: left antecubital; iw 10:50 Follow up: Response: No adverse reaction; Pain is decreased iw 09:51 Drug: fentaNYL (PF) IVP 50 mcg IVP once Route: IVP; Site: left antecubital; iw 10:50 Follow up: Response: No adverse reaction; Pain is decreased iw 09:51 Drug: Ondansetron IVP 4 mg IVP once; over 2 minutes Route: IVP; Site: left antecubital; iw 10:50 Follow up: Response: No adverse reaction iw 11:04 Not Given (Patient Refused): [id number] mg IVPB once over 30 mins; (mix in 50 mL) iw 19:30 Not Given (Patient Refused): ns 0.9% 1000 ml IV at 1000 ml once; to be given as a bolus iw over 60 minutes Disposition Summary: 06/22/24 10:59 Discharge Ordered Notes: Location: Home deni Problem: new deni Symptoms: have improved deni Condition: Stable deni Diagnosis - Dental caries, unspecified deni - Dental root caries deni Followup: deni - With: Private Physician - When: 2 - 3 days - Reason: Recheck today's complaints, Continuance of care, Re-evaluation by your physician Followup: deni - With: Good Tabares DDS - When: 2 - 3 days - Reason: Recheck today's complaints, Re-evaluation by your physician Discharge Instructions: - Discharge Summary Sheet deni - Dental Caries, Adult deni - Dental Pain deni - Dental Pain, [id number] [facility] - Diet and Dental Disease [facility] Forms: - Medication Reconciliation Form [facility] - Antibiotic Education deni - Prescription Opioid Use deni - Patient Portal Instructions [facility] - Leadership Thank You Letter [facility] Prescriptions: - Clindamycin HCl 300 mg Oral Capsule - take 1 capsule ORAL route every 6 hours for 10 days; 40 capsule; Refills: 0, [facility] Product Selection Permitted - Ibuprofen 600 mg Oral Tablet - take 1 tablet ORAL route every 6 hours As needed take with food; 30 tablet; [facility] Refills: 0, Product Selection Permitted Signatures: Dispatcher [employer] EDMS Savage Gallego MD MD cha Williams, Irene RN RN iw Corrections: (The following items were deleted from the chart) 09:00 09:00 CBC+H.LAB.BRZ ordered. EDMS EDMS 09:00 09:00 COMPREHENSIVE METABOLIC PANEL+C.LAB.BRZ ordered. EDMS EDMS 09:00 09:00 Urinalysis+U.LAB.BRZ ordered. EDMS EDMS 09:00 09:00 Test, Urine+UC.LAB.BRZ ordered. EDMS EDMS 09:00 09:00 Facial Bones W/ MPR+CT.RAD.BRZ ordered. EDMS EDMS 09:02 09:02 Allergies: Tetanus Vaccines \T\ Toxoid; iw iw
[2024-06-22 11:12] VITALS: BP 151/101; TEMP 97.6; O2SAT 100
== END 2024-06-22 11:08 | disposition home or self-care (01) ==
LOC: ER 08:56
DX: K02.7 Dental root caries (principal)
CPT/HCPCS: 85025; 36415; 80053; 70486; 76377; 96375; 96374; 99284; J3010; J2405